=== PATIENT | male | born 1955 | race Caucasian/White ===

== ENCOUNTER → 2016-09-10 | Outpatient (CLI) | payer SELFPAY ==
--- NOTE | 2016-09-10 16:59 | KCIC ---
PROCEDURE MRI of the lumbar spine without contrast 09/10/2016 HISTORY Chronic low back pain which involves both legs with bilateral leg numbness. TECHNIQUE Unenhanced T1 weighted and T2 weighted sagittal and axial and inversion recovery sagittal images of the lumbar spine were obtained. FINDINGS Sagittal and coronal reconstructed images demonstrate very mild S-shaped curvature of the thoracolumbar spine. Bilateral spondylolysis is seen at L5. Grade 1 spondylolisthesis of L5 in relation to S1 is noted. Degenerative signal changes are seen involving predominantly the L2-3, L3-4, L4-5 and L5-S1 discs. Degenerative signal changes seen within the marrow surrounding these discs. Loss of height of the L5-S1 disc is noted. The conus medullaris is normal in position and signal characteristics. The L1-2 disc space there is a mild generalized disc bulge. Degenerative changes are seen involving the facet joints bilaterally. These findings do not result in significant central spinal canal or neural foraminal stenosis. At the L2-3 and L3-4 disc spaces are mild generalized disc bulges. Degenerative changes are seen involving the facet joints bilaterally. There is mild to moderate ligamentum flavum hypertrophy bilaterally. There is prominence of the posterior epidural fat. These findings when combined result in mild to moderate central spinal canal stenosis. Mild bilateral neural foraminal stenosis is seen. At the L4-5 disc space there is a mild generalized disc bulge. Degenerative changes are seen involving the facet joints bilaterally. There is mild ligamentum flavum hypertrophy bilaterally. These findings when combined do not result in significant central spinal canal stenosis. Mild bilateral neural foraminal stenosis is seen. At the L5-S1 disc space there is a mild to moderate generalized disc bulge. Degenerative changes are seen involving the facet joints bilaterally. These findings when combined with the anterolisthesis do not result in significant central spinal canal stenosis. Moderate to severe bilateral neural foraminal stenosis is seen. IMPRESSION 1. Bilateral spondylolysis with grade 1 spondylolisthesis at L5-S1. 2. The changes of degenerative disc disease are seen throughout the lumbar spine. These findings result in mild to moderate central spinal canal stenosis at L2-3 and L3-4. Mild bilateral neural foraminal stenosis is seen at L2-3, L3-4 and L4-5. Moderate to severe bilateral neural foraminal stenosis is seen at L5-S1. Electronically signed by: Bert Young MD (Sep 10, 2016 16:58:20)
== END | disposition home or self-care (01) ==
LOC: KCIC MRI 15:05
DX: M47.897 Other spondylosis, lumbosacral region (principal); M43.17 Spondylolisthesis, lumbosacral region; M48.07 Spinal stenosis, lumbosacral region; M51.36 Other intervertebral disc degeneration, lumbar region
CPT/HCPCS: 72148